=== PATIENT | female | born 1975 | race Hispanic/Latino ===

== ENCOUNTER 2023-10-14 14:27 | Emergency (ER) | payer SELFPAY ==
[~2023-10-14] VITALS: Ht 154.9 cm; Wt 58.0 kg
[~2023-10-14 14:27] MED LIST: AMOXICILLIN500 MG OR; CIPRO XR500 M2 PO; DETROL LA4 MG PO; MOTRIN200 MG PO; NO; ONDANSETRON4 MG PO; ULTRAM50 M1 PO
[2023-10-14 14:34] VITALS: BP 140/88
[2023-10-14] MEDS ORDERED: KETOROLAC TROMETHAMINE 30 MG/ML SDV IM ONE (14:40)
[2023-10-14 14:45] VITALS: BP 130/86
[2023-10-14 15:00] VITALS: BP 127/83
[2023-10-14 15:15] VITALS: BP 129/83
[2023-10-14] MEDS ORDERED: MEDDOSEPAK PO (15:24)
[2023-10-14 15:30] VITALS: BP 132/95
== END 2023-10-14 15:55 | disposition home or self-care (01) | DRG 179 ==
LOC: ED 14:27
DX: U07.1 COVID-19 (principal); R52 Pain, unspecified; R05.9 Cough, unspecified; R50.9 Fever, unspecified; J02.9 Acute pharyngitis, unspecified